=== PATIENT | female | born 1965 | race African-American/Black ===

== ENCOUNTER 2020-11-05 09:08 | Day surgery (SDC) | payer BC ==
[2020-11-01 12:00] VITALS: BMI 25.0
[2020-11-05] MEDS ORDERED: LIDOCAINE HCL/PF 2% SDV 5ML VIAL ONE (09:55)
[2020-11-05] MEDS ORDERED: PROPOFOL 20 ML ONE ×3 (09:55)
[2020-11-05 11:03] VITALS: TEMP 97.8
[2020-11-05 11:34] VITALS: BP 118/65; PULSE 74
== END 2020-11-05 11:34 | disposition home or self-care (01) ==
LOC: FASU-ENDO 09:08
PROVIDERS: ATTEND Internal Medicine Gastroenterology
PROC: 0DBK8ZX Excision of Ascending Colon, Via Natural or Artificial Opening Endoscopic, Diagnostic (ICD-10-PCS; principal; 2020-11-05 10:31)
DX: Z12.11 Encounter for screening for malignant neoplasm of colon (principal); D12.2 Benign neoplasm of ascending colon; K64.1 Second degree hemorrhoids; K64.8 Other hemorrhoids; Z86.010 Personal history of colon polyps
CPT/HCPCS: 88305-TC